=== PATIENT | female | born 1995 ===

== ENCOUNTER 2019-09-21 17:38 | Observation (INO) | payer MEDICAID ==
[~2019-09-21] VITALS: Ht 147.3 cm; Wt 52.7 kg
[~2019-09-21 17:38] MED LIST: NITR100C56 PO
[2019-09-21 18:55] LABS: MICROSCOPIC INDICATED
[2019-09-21] MEDS ORDERED: LACTATED RINGERS 1,000 ML IV SCH (20:46)
[2019-09-21] MEDS: CEFTRIAXONE PMX 1GM/50ML 50 ML IV SCH (21:22)
[2019-09-21 22:57] LABS: BASOPHILS # (AUTO) 0.04 x10^3/uL (0-0.1); BASOPHILS % (AUTO) 0 % (0-1); EOSINOPHILS # (AUTO) 0.03 x10^3/uL (0-0.4); EOSINOPHILS % (AUTO) 0 % (1-7); LYMPHOCYTES # (AUTO) 1.38 x10^3/uL (1-3.4); LYMPHOCYTES % (AUTO) 12 % (22-44); MD NO; MEAN CORPUSCULAR HEMOGLOBIN 31.2 pg (27.0-34.8); MEAN CORPUSCULAR HGB CONC 33.7 g/dL (32.4-35.8); MEAN CORPUSCULAR VOLUME 92.5 fL (80-100); MEAN PLATELET VOLUME 9.7 fL (7.4-10.4); MONOCYTES # (AUTO) 1.06 x10^3/uL (0.2-0.8); MONOCYTES % (AUTO) 9 % (2-9); NEUTROPHILS # (AUTO) 9.11 x10^3/uL (1.8-6.8); NEUTROPHILS % (AUTO) 78 % (42-75); PLATELET COUNT 212 x10^3/uL (130-400); RED BLOOD COUNT 4.19 x10^6/uL (3.82-5.3); RED CELL DISTRIBUTION WIDTH 13.2 % (9.6-15.2)
[2019-09-21 23:08] LABS: ALANINE AMINOTRANSFERASE 12 U/L (12-78); ALBUMIN 2.6 g/dL (3.4-5.0); ANION GAP 6 mmol/L (5-15); CALCIUM 8.2 mg/dL (8.5-10.1); CHLORIDE 108 mmol/L (98-107); CREATININE 0.69 mg/dL (0.55-1.02)
[2019-09-21 23:10] LABS: ALKALINE PHOSPHATASE 135 U/L (45-117); BILIRUBIN,TOTAL 0.4 mg/dL (0.2-1.0); TOTAL PROTEIN 6.2 g/dL (6.4-8.2)
[2019-09-22] MEDS: CEFTRIAXONE PMX 1GM/50ML 50 ML IV SCH (21:46)
[2019-09-23] MEDS ORDERED: DOCUSATE 100 MG CAPSULE ONE (08:52)
[2019-09-23] MEDS ORDERED: PRENATAL VIT/IRON/FA 1 EACH TABLET ONE (08:52)
[2019-09-23] MEDS ORDERED: PRENATAL VIT/IRON/FA 1 EACH TABLET PO SCH (09:00)
[2019-09-23] MEDS ORDERED: DOCUSATE 100 MG CAPSULE PO SCH (09:00)
[2019-09-23] MEDS ORDERED: VALACYCLOVIR 500MG TABLET ONE (09:36)
[2019-09-23] MEDS ORDERED: VALACYCLOVIR 500MG TABLET PO SCH (10:00)
[2019-09-23 12:51] VITALS: BP 108/68
[2019-09-24] MEDS ORDERED: VALACYCLOVIR 500MG TABLET PO SCH (09:00)
== END 2019-09-23 17:14 | disposition home or self-care (01) ==
LOC: LDOP 17:38 → LDIP 09-22 00:12
PROVIDERS: ADMIT Obstetrics & Gynecology; ATTEND Obstetrics & Gynecology
DX: O23.03 Infections of kidney in pregnancy, third trimester (principal); Z20.828 Contact with and (suspected) exposure to other viral communicable diseases; O99.513 Diseases of the respiratory system complicating pregnancy, third trimester; J45.909 Unspecified asthma, uncomplicated; O99.353 Diseases of the nervous system complicating pregnancy, third trimester; G43.909 Migraine, unspecified, not intractable, without status migrainosus; Z86.19 Personal history of other infectious and parasitic diseases; Z3A.34 34 weeks gestation of pregnancy
CPT/HCPCS: 36415; 59025; 80053; 81001; 85025; 87077; 87086; 87186; 87635; 96361; 96365; 96366; G0378; J0696; J7120; 96360

== ENCOUNTER 2019-10-15 08:15 | Outpatient (CLI) | payer MEDICAID ==
[~2019-10-15] VITALS: Ht 147.3 cm; Wt 54.1 kg
[2019-10-15 09:50] VITALS: BP 114/63
== END 2019-10-15 10:18 | disposition home or self-care (01) ==
LOC: LDOP 08:15
PROVIDERS: ATTEND Obstetrics & Gynecology
DX: O42.92 Full-term premature rupture of membranes, unspecified as to length of time between rupture and onset of labor (principal); Z3A.37 37 weeks gestation of pregnancy
CPT/HCPCS: 59025; 89060; Q0114

== ENCOUNTER 2019-10-28 18:42 | Outpatient (CLI) | payer MEDICAID ==
[~2019-10-28] VITALS: Ht 147.3 cm; Wt 54.0 kg
[2019-10-28 18:51] VITALS: BP 114/67
== END 2019-10-28 20:28 | disposition home or self-care (01) ==
LOC: LDOP 18:42 → EDSTATUS 11-02 18:42
PROVIDERS: ATTEND Obstetrics & Gynecology
DX: O26.893 Other specified pregnancy related conditions, third trimester (principal); R10.9 Unspecified abdominal pain; Z3A.39 39 weeks gestation of pregnancy
CPT/HCPCS: 59025; 84112

== ENCOUNTER → 2019-10-28 | Outpatient (CLI) | payer MEDICAID | END | disposition home or self-care (01) | LOC: STAR 08:47 | PROVIDERS: ATTEND Obstetrics & Gynecology | DX: Z01.818 Encounter for other preprocedural examination (principal); Z11.59 Encounter for screening for other viral diseases | CPT/HCPCS: 36415; 87635 ==

== ENCOUNTER 2019-10-31 19:10 | Outpatient (CLI) | payer MEDICAID ==
[~2019-10-31] VITALS: Ht 147.3 cm; Wt 54.0 kg
[2019-10-31 19:46] VITALS: BP 109/61
== END 2019-10-31 20:27 | disposition home or self-care (01) ==
LOC: LDOP 19:10
PROVIDERS: ATTEND Obstetrics & Gynecology
DX: O62.8 Other abnormalities of forces of labor (principal); Z3A.40 40 weeks gestation of pregnancy
CPT/HCPCS: 59025

== ENCOUNTER 2019-11-01 02:02 | Inpatient (IN) | payer MEDICAID ==
[~2019-11-01] VITALS: Ht 149.9 cm; Wt 54.1 kg
[2019-11-01] MEDS ORDERED: OXYTOCIN 30U/ 0.9% NaCL 500ML 500 ML IV PRN (03:09)
[2019-11-01] MEDS ORDERED: OXYTOCIN 30U/ 0.9% NaCL 500ML 500 ML IV ONE (03:09)
[2019-11-01] MEDS ORDERED: D5%-LACTATED RINGERS 1,000 ML IV SCH (03:09)
[2019-11-01] MEDS ORDERED: LIDOCAINE 1%, 20ML ONE (03:15)
[2019-11-01] MEDS ORDERED: OXYTOCIN 30U/ 0.9% NaCL 500ML 500 ML ONE (03:15)
[2019-11-01] MEDS ORDERED: NEWBORN KIT ONE (03:15)
[2019-11-01] MEDS ORDERED: MISOPROSTOL 200 MCG TABLET ONE (03:15)
[2019-11-01] MEDS ORDERED: TERBUTALINE 1 MG/ML, 1ML IVPush PRN (03:30)
[2019-11-01] MEDS ORDERED: CALCIUM CARBONATE 500 MG TAB.CHEW PO PRN ×2 (03:30→19:00)
[2019-11-01] MEDS ORDERED: ONDANSETRON 2MG/ML, 2ML IVPush PRN (03:30)
[2019-11-01] MEDS ORDERED: TERBUTALINE 1 MG/ML, 1ML SQ PRN (03:30)
[2019-11-01] MEDS ORDERED: SODIUM CITRATE/CITRIC ACID 30 ML UDC PO PRN (03:30)
[2019-11-01] MEDS ORDERED: FENTANYL PF 100 MCG/2ML IV PRN (03:30)
[2019-11-01] MEDS ORDERED: FENTANYL PF 100 MCG/2ML IVPush PRN (03:30)
[2019-11-01] MEDS ORDERED: METOCLOPRAMIDE 5 MG/ML, 2ML IVPush PRN (03:30)
[2019-11-01 03:36] LABS: BASOPHILS # (AUTO) 0.09 x10^3/uL (0-0.1); BASOPHILS % (AUTO) 1 % (0-1); EOSINOPHILS # (AUTO) 0.13 x10^3/uL (0-0.4); EOSINOPHILS % (AUTO) 1 % (1-7); LYMPHOCYTES # (AUTO) 1.86 x10^3/uL (1-3.4); LYMPHOCYTES % (AUTO) 15 % (22-44); MD NO; MEAN CORPUSCULAR HEMOGLOBIN 30.7 pg (27.0-34.8); MEAN CORPUSCULAR HGB CONC 33.5 g/dL (32.4-35.8); MEAN CORPUSCULAR VOLUME 91.7 fL (80-100); MEAN PLATELET VOLUME 10.6 fL (7.4-10.4); MONOCYTES # (AUTO) 1.07 x10^3/uL (0.2-0.8); MONOCYTES % (AUTO) 9 % (2-9); NEUTROPHILS # (AUTO) 8.93 x10^3/uL (1.8-6.8); NEUTROPHILS % (AUTO) 74 % (42-75); PLATELET COUNT 179 x10^3/uL (130-400); RED BLOOD COUNT 4.67 x10^6/uL (3.82-5.3); RED CELL DISTRIBUTION WIDTH 13.2 % (9.6-15.2)
[2019-11-01] MEDS: LACTATED RINGERS 1,000 ML IV SCH ×6 (07:45→19:19)
[2019-11-01] MEDS ORDERED: FENTANYL PF 100 MCG/2ML ONE ×2 (10:40→17:24)
[2019-11-01] MEDS ORDERED: BUPIVACAINE 0.25% ONE ×2 (12:13→12:20)
[2019-11-01] MEDS ORDERED: FENTANYL/BUPIV./NS/PF 250 ML EPIDCONT ONE ×2 (12:13→12:20)
[2019-11-01] MEDS ORDERED: LACTATED RINGERS 1,000 ML IV SCH (12:39)
[2019-11-01] MEDS ORDERED: FENTANYL/BUPIV./NS/PF 250 ML EPIDCONT SCH (12:39)
[2019-11-01] MEDS ORDERED: LACTATED RINGERS 1,000 ML IVBOLUS PRN (13:00)
[2019-11-01] MEDS ORDERED: EPHEDRINE 50 MG/ML, 1ML IVPush PRN (13:00)
[2019-11-01] MEDS ORDERED: TERBUTALINE 1 MG/ML, 1ML ONE (13:07)
[2019-11-01] MEDS ORDERED: METOCLOPRAMIDE 5 MG/ML, 2ML ONE (17:16)
[2019-11-01] MEDS ORDERED: SODIUM CITRATE/CITRIC ACID 30 ML UDC ONE (17:16)
[2019-11-01] MEDS ORDERED: OXYTOCIN 10 UNITS/ML, 1ML ONE (17:24)
[2019-11-01] MEDS ORDERED: HYDROmorphone 2 MG/ML, 1ML ONE (17:24)
[2019-11-01] MEDS ORDERED: CEFAZOLIN 1,000 MG ONE (17:24)
[2019-11-01] MEDS ORDERED: ONDANSETRON 2MG/ML, 2ML ONE (17:24)
[2019-11-01] MEDS ORDERED: LIDOCAINE-MPF 2% ,5ML ONE ×2 (17:28)
[2019-11-01] MEDS ORDERED: SODIUM CHLORIDE 0.9% PF 10ML ONE ×2 (17:28)
[2019-11-01] MEDS ORDERED: LACTATED RINGERS 1,000 ML IVBOLUS ONE (17:30)
[2019-11-01] MEDS ORDERED: AZITHROMYCIN 500 MG in SODIUM CHLORIDE 0.9% 250 ML IV ONE (18:00)
[2019-11-01] MEDS ORDERED: KETOROLAC 30 MG/1 ML ONE (18:21)
[2019-11-01] MEDS: OXYTOCIN 30U/ 0.9% NaCL 500ML 500 ML IV SCH (18:43)
[2019-11-01] MEDS ORDERED: ONDANSETRON 2MG/ML, 2ML IV PRN (19:00)
[2019-11-01] MEDS ORDERED: BISACODYL 10 MG SUPP PR PRN (19:00)
[2019-11-01] MEDS ORDERED: MISOPROSTOL 200 MCG TABLET PR PRN (19:00)
[2019-11-01] MEDS ORDERED: DOCUSATE 100 MG CAPSULE PO PRN (19:00)
[2019-11-01] MEDS: KETOROLAC 30 MG/1 ML IV SCH (19:00)
[2019-11-01] MEDS ORDERED: MORPHINE SULFATE 4 MG/ML, 1ML IVPush PRN (19:00)
[2019-11-01] MEDS ORDERED: morphine SULFATE 10 MG/ML, 1ML IV PRN (19:00)
[2019-11-01] MEDS ORDERED: ACETAMINOPHEN 325 MG TABLET PO PRN (19:00)
[2019-11-01 21:00] VITALS: BP 105/55
[2019-11-01] MEDS: OXYcodone IR 5MG TABLET PO PRN (22:12)
[2019-11-02] MEDS: KETOROLAC 30 MG/1 ML IV SCH ×3 (00:12→12:30)
[2019-11-02 00:21] VITALS: BP 100/58
[2019-11-02 02:16] LABS: BASOPHILS # (AUTO) 0.02 x10^3/uL (0-0.1); BASOPHILS % (AUTO) 0 % (0-1); EOSINOPHILS # (AUTO) 0.03 x10^3/uL (0-0.4); EOSINOPHILS % (AUTO) 0 % (1-7); LYMPHOCYTES # (AUTO) 1.45 x10^3/uL (1-3.4); LYMPHOCYTES % (AUTO) 14 % (22-44); MD NO; MEAN CORPUSCULAR HGB CONC 33.7 g/dL (32.4-35.8); MEAN CORPUSCULAR VOLUME 91.8 fL (80-100); MEAN PLATELET VOLUME 10.5 fL (7.4-10.4); MONOCYTES % (AUTO) 8 % (2-9); NEUTROPHILS # (AUTO) 7.87 x10^3/uL (1.8-6.8); NEUTROPHILS % (AUTO) 77 % (42-75); PLATELET COUNT 136 x10^3/uL (130-400); RED BLOOD COUNT 3.62 x10^6/uL (3.82-5.3); RED CELL DISTRIBUTION WIDTH 13.3 % (9.6-15.2)
[2019-11-02] MEDS: LACTATED RINGERS 1,000 ML IV SCH ×5 (02:43→18:34)
[2019-11-02] MEDS: OXYcodone IR 5MG TABLET PO PRN ×4 (04:19→23:35)
[2019-11-02 04:20] VITALS: BP 93/53
[2019-11-02] MEDS: OXYTOCIN 30U/ 0.9% NaCL 500ML 500 ML IV SCH ×2 (04:43→12:40)
[2019-11-02] MEDS ORDERED: RHOGAM FROM BLOOD BANK 1 NOTE EA IM/IV ONE (06:00)
[2019-11-02] MEDS: PRENATAL VIT/IRON/FA 1 EACH TABLET PO SCH (09:04)
[2019-11-02 09:05] VITALS: BP 100/67
[2019-11-02] MEDS: SIMETHICONE 80 MG CHEW TAB PO PRN ×3 (09:05→23:35)
[2019-11-02 12:39] VITALS: BP 99/62
[2019-11-02 16:23] VITALS: BP 99/65
[2019-11-02] MEDS: IBUPROFEN 600 MG TABLET PO PRN (18:38)
[2019-11-02 20:40] VITALS: BP 97/60
[2019-11-02] MEDS: DOCUSATE 100 MG CAPSULE PO SCH (20:52)
[2019-11-03] MEDS: LACTATED RINGERS 1,000 ML IV SCH ×2 (00:43→02:43)
[2019-11-03] MEDS: OXYTOCIN 30U/ 0.9% NaCL 500ML 500 ML IV SCH (00:43)
[2019-11-03] MEDS: IBUPROFEN 600 MG TABLET PO PRN ×3 (02:47→14:20)
[2019-11-03 08:19] VITALS: BP 99/62
[2019-11-03] MEDS: DOCUSATE 100 MG CAPSULE PO SCH (08:26)
[2019-11-03] MEDS: PRENATAL VIT/IRON/FA 1 EACH TABLET PO SCH (08:26)
[2019-11-03] MEDS: OXYcodone IR 5MG TABLET PO PRN (08:27)
[2019-11-03] MEDS ORDERED: DOCU-131 PO (13:13)
[2019-11-03] MEDS ORDERED: IBUP-1222 PO (13:13)
[2019-11-03] MEDS ORDERED: OXYC-302 PO (13:13)
== END 2019-11-03 14:40 | disposition home or self-care (01) | DRG 787 ==
LOC: LDOP 02:02 → LDIP 03:25 → 2NW 20:42
PROVIDERS: ADMIT Obstetrics & Gynecology; ATTEND Obstetrics & Gynecology
PROC: 10D00Z1 Extraction of Products of Conception, Low, Open Approach (ICD-10-PCS; 2019-11-01)
PROC: 30233S1 Transfusion of Nonautologous Globulin into Peripheral Vein, Percutaneous Approach (ICD-10-PCS; principal; 2019-11-02)
DX: O76 Abnormality in fetal heart rate and rhythm complicating labor and delivery (principal); O98.32 Other infections with a predominantly sexual mode of transmission complicating childbirth; O69.81X0 Labor and delivery complicated by cord around neck, without compression, not applicable or unspecified; Z20.828 Contact with and (suspected) exposure to other viral communicable diseases; A60.09 Herpesviral infection of other urogenital tract; O77.0 Labor and delivery complicated by meconium in amniotic fluid; Z37.0 Single live birth; Z3A.40 40 weeks gestation of pregnancy; Z83.3 Family history of diabetes mellitus
CPT/HCPCS: 36415; 96372; 99285; J3490; J7121; 82803; 85025; 85461; 86592; 86850; 86900; 89060; G0378; J0456; J0690; J1170; J1885; J2405; J2790; J3010; J2590; J2765; J7050; J7120; Q0114

== ENCOUNTER 2020-05-13 23:33 | Emergency (ER) | payer MEDICAID ==
[~2020-05-13] VITALS: Ht 147.3 cm; Wt 45.7 kg
[~2020-05-13 23:33] MED LIST changes: +DOCU-131 PO; +IBUP-1222 PO; +OXYC1TAB14 PO
[2020-05-14 00:18] VITALS: BP 114/67
== END 2020-05-14 00:41 | disposition home or self-care (01) ==
LOC: ED 05-14 00:35
DX: J06.9 Acute upper respiratory infection, unspecified (principal); R05 Cough
CPT/HCPCS: 99283

== ENCOUNTER 2020-08-30 04:51 | Emergency (ER) | payer MEDICAID ==
[~2020-08-30] VITALS: Ht 147.3 cm; Wt 46.8 kg
--- NOTE | 2020-08-30 05:06 | NUR ---
PT PRESENTS TO THE ER FOR A SORE THROAT, PT STATES SHE JUST WANTS TO RULE OUT A STREP THROAT SO SHE DOESNT GIVE IT TO HER KIDS OR TO HER COWORKERS, ALL NEEDS IN REACH, CALL LIGHT IN REACH, NAD
[2020-08-30] MEDS ORDERED: IBUPROFEN 600 MG TABLET ONE (05:49)
[2020-08-30] MEDS ORDERED: DEXAMETHASONE 4 MG TABLET ONE (05:49)
[2020-08-30] MEDS ORDERED: IBUPROFEN 600 MG TABLET PO ONE (06:00)
[2020-08-30] MEDS ORDERED: DEXAMETHASONE 4 MG TABLET PO ONE (06:00)
[2020-08-30 06:57] VITALS: BP 124/78
== END 2020-08-30 07:33 | disposition home or self-care (01) ==
LOC: ED 06:39
DX: J02.8 Acute pharyngitis due to other specified organisms (principal); B97.89 Other viral agents as the cause of diseases classified elsewhere
CPT/HCPCS: 87081; 87880; 99283